=== PATIENT | male | born 1995 | race Hispanic/Latino ===

== ENCOUNTER 2017-02-26 00:02 | Emergency (ER) | payer BC ==
[2017-02-26 00:29] VITALS: BP 140/59; PULSE 82; RESP 16; TEMP 98.3; O2SAT 98
[2017-02-26] MEDS ORDERED: Lidocaine/Epi 1% 1:100000 20 ML IJ ONE (00:55)
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
[2017-02-26] MEDS ORDERED: Lidocaine 2% w Epi 1:100,000 Inj IJ ONE (01:02)
== END 2017-02-26 02:02 | disposition home or self-care (01) ==
LOC: H.ER 00:02
DX: S01.111A Laceration without foreign body of right eyelid and periocular area, initial encounter (principal); W50.0XXA Accidental hit or strike by another person, initial encounter; Y93.9 Activity, unspecified; Y92.9 Unspecified place or not applicable

== ENCOUNTER 2017-11-13 01:51 | Emergency (ER) | payer BC ==
[2017-11-13 02:04] VITALS: BP 137/77; PULSE 80; RESP 16; TEMP 98; O2SAT 98
--- NOTE | 2017-11-13 03:14 | ED PDOC ---
HPI: Psych/Substance Abuse Time Seen by Provider: 11/13/17 02:12 Chief Complaint (Nursing): Psychiatric Evaluation Chief Complaint (Provider): Crisis Evaluation History Per: Patient History/Exam Limitations: no limitations Onset/Duration Of Symptoms: Days (many), Intermittent Episodes Current Symptoms Are (Timing): Intermittent Episodes Suicide/Self Injury Attempted (Context): None Additional Complaint(s): Pt presents to the ED with the [place] [employer] for concerns expressed by pt girlfriend ooncerning potential suicide. Pt acknowleges that he has thought from time to time about suicide, but has not developed or even thought about a plan. Pt denies other symptoms, psychiatric history or background; pt also deneis homicidal ideation Past Medical History Reviewed: Historical Data, Nursing Documentation, Vital Signs Vital Signs: Last Vital Signs Temp 98.0 F 11/13/17 02:01 Pulse 80 11/13/17 02:01 Resp 16 11/13/17 02:01 BP 137/77 11/13/17 02:01 Pulse Ox 98 11/13/17 02:01 - Family History Family History: States: Unknown Family Hx - Allergies Allergies/Adverse Reactions: Allergies Allergy/AdvReac Type Severity Reaction Status Date / Time No Known Allergies Allergy Verified 02/26/17 00:29 Review of Systems ROS Statement: Except As Marked, All Systems Reviewed And Found Negative Psych: Positive for: Suicidal ideation Physical Exam - Reviewed Nursing Documentation Reviewed: Yes Vital Signs Reviewed: Yes - Physical Exam Appears: Positive for: Well, Non-toxic, No Acute Distress Head Exam: Positive for: ATRAUMATIC, NORMAL INSPECTION, NORMOCEPHALIC Skin: Positive for: Normal Color, Warm, Dry Neck: Positive for: Normal, Painless ROM, Supple. 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 - ECG O2 Sat by Pulse Oximetry: 98 Medical Decision Making Medical Decision Making: Pt is medically cleared for crisis screening Disposition - Clinical Impression Clinical Impression: Adjustment disorder - Patient ED Disposition Is Patient to be Admitted: No Discussed With : Amel A Badr Doctor Will See Patient In The: Office Counseled Patient/Family Regarding: Studies Performed, Diagnosis - Disposition Disposition: Routine/Home Disposition Time: 03:23 Condition: STABLE Additional Instructions: referrals provided by Crisis Counselors Instructions: Adjustment Disorder Forms: [employer] (Bulgarian)
== END 2017-11-13 03:24 | disposition home or self-care (01) ==
LOC: H.ER 01:51
DX: F43.20 Adjustment disorder, unspecified (principal); Z00.8 Encounter for other general examination

== ENCOUNTER 2018-05-18 20:06 | Emergency (ER) | payer BC ==
[2018-05-18 21:11] VITALS: BP 159/77; PULSE 73; RESP 16; TEMP 98.7; O2SAT 96
[2018-05-18] MEDS ORDERED: Oxycodone/Acetaminophen 5/325 mg Tab PO ONE (23:28)
[2018-05-18] MEDS ORDERED: Oxycodone/Acetaminophen 5/325 mg Tab ONE (23:41)
--- NOTE | 2018-05-18 23:49 | ED PDOC ---
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 Patient was weight lifting at the gym and thinks he pulled his pectoral muscle. Patient reports having a lot of pain and took Motrin prior to arrival. Past Medical History Reviewed: Historical Data, Nursing Documentation, Vital Signs Vital Signs: Last Vital Signs Temp 98.7 F 05/18/18 21:08 Pulse 73 05/18/18 21:08 Resp 16 05/18/18 21:08 BP 159/77 H 05/18/18 21:08 Pulse Ox 96 05/18/18 21:08 - Medical History PMH: No Chronic Diseases Denies: Diabetes, Hepatitis, HIV, HTN, Seizures, Sexually Transmitted Disease - Surgical History Surgical History: No Surg Hx - Family History Family History: States: Unknown Family Hx - Social History Current smoker - smoking cessation education provided: No Alcohol: None Drugs: Denies - Home Medications Home Medications: Ambulatory Orders Medication Instructions Recorded Ibuprofen [Motrin] 600 mg PO Q6H PRN #20 tab 05/18/18 - Allergies Allergies/Adverse Reactions: Allergies Allergy/AdvReac Type Severity Reaction Status Date / Time No Known Allergies Allergy Verified 02/26/17 00:29 Review of Systems ROS Statement: Except As Marked, All Systems Reviewed And Found Negative Cardiovascular: Positive for: Chest Pain (pectoral muscle) Physical Exam - Reviewed Nursing Documentation Reviewed: Yes Vital Signs Reviewed: Yes - Physical Exam Appears: Positive for: Well, Non-toxic, No Acute Distress Head Exam: Positive for: ATRAUMATIC, NORMOCEPHALIC Skin: Positive for: Normal Color, Warm, DRY Eye Exam: Positive for: EOMI, Normal appearance, PERRL Cardiovascular/Chest: Positive for: Regular Rate, Rhythm. Negative for: Murmur Respiratory: Positive for: Normal Breath Sounds. Negative for: Respiratory Distress Gastrointestinal/Abdominal: Positive for: Normal Exam, Soft. Negative for: Tenderness Extremity: Positive for: Tenderness (left axillary area), Other. Negative for: Normal ROM (difficulty with abducting left arm), Pedal Edema, Deformity Neurologic/Psych: Positive for: Alert, Oriented. Negative for: Motor/Sensory Deficits - ECG O2 Sat by Pulse Oximetry: 96 (RA) Pulse Ox Interpretation: Normal Medical Decision Making Medical Decision Making: Time: 23:24 Initial Impression: left pectoral pain Initial Plan: * CXR * Percocet * RAD - shoulder 23:53 X-ray read by provider. Patient is stable for discharge home. 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 Scribe Attestation: Documented by Jean-Claude Gomez acting as a scribe for Shad Mack MD. Provider Scribe Attestation: All medical record entries made by the Scribe were at my direction and personally dictated by me. I have reviewed the chart and agree that the record accurately reflects my personal performance of the history, physical exam, medical decision making, and the department course for this patient. I have also personally directed, reviewed, and agree with the discharge instructions and disposition. Disposition - Clinical Impression Clinical Impression: Muscle strain - Disposition Referrals: Yordan Richter III, MD [Staff Provider] - Disposition: Routine/Home Disposition Time: 23:53 Condition: IMPROVED Additional Instructions: follow up with your orthopedist this week return to the ED with any worsening or concerning symptoms Prescriptions: Ibuprofen [Motrin] 600 mg PO Q6H PRN #20 tab PRN Reason: Pain, Moderate (4-7) Instructions: Muscle Strain (DC) Forms: [employer] (New Zealander)
--- NOTE | 2018-05-19 08:48 | RAD ---
Date of service: 05/18/2018 PROCEDURE: Radiographs of the Left Shoulder HISTORY: pain sp lifting weigts COMPARISON: No prior. FINDINGS: BONES: No acute fracture or destructive bony lesion identified. JOINTS: Normal. Glenohumeral and acromioclavicular joints preserved. No osteoarthritis. SOFT TISSUES: Normal. OTHER FINDINGS: None. IMPRESSION: Unremarkable radiographs of the left shoulder.
--- NOTE | 2018-05-19 08:48 | RAD ---
Date of service: 05/18/2018 HISTORY: pain COMPARISON: Frontal chest radiograph 02/01/2015. TECHNIQUE: Chest PA and lateral FINDINGS: LUNGS: Improved inspiratory volume. No active pulmonary disease appreciable bilaterally. PLEURA: No significant pleural effusion identified. No pneumothorax apparent. CARDIOVASCULAR: No aortic atherosclerotic calcification present. Normal cardiac size. No pulmonary vascular congestion. OSSEOUS STRUCTURES: No significant abnormalities. VISUALIZED UPPER ABDOMEN: Normal. OTHER FINDINGS: None. IMPRESSION: No interval acute cardiopulmonary disease appreciated.
== END 2018-05-19 00:30 | disposition home or self-care (01) ==
LOC: H.ER 20:06
DX: S46.912A Strain of unspecified muscle, fascia and tendon at shoulder and upper arm level, left arm, initial encounter (principal); X50.9XXA Other and unspecified overexertion or strenuous movements or postures, initial encounter; Y92.89 Other specified places as the place of occurrence of the external cause